=== PATIENT | female | born 1960 | race Caucasian/White ===

== ENCOUNTER 2023-08-15 17:11 | Emergency (ER) | payer OTHER ==
[2023-08-15] MEDS: Labetalol 100 MG/20 ML MDV IVPUSH ONE ×3 (18:30→19:08)
[2023-08-15] MEDS: Sodium Chloride 0.9% 1,000 ML IV SCH (18:35)
[2023-08-15 18:37] LABS: BASOPHILS ABSOLUTE AUTO 0.1 K/mm3 (0.0-0.2); BASOPHILS PERCENT AUTO 0.4 % (0.0-1.0); EOSINOPHILS ABSOLUTE AUTO 0.3 K/mm3 (0.0-0.4); EOSINOPHILS PERCENT AUTO 2.3 % (0.0-6.0); HEMATOCRIT 44.7 % (37.0-47.0); HEMOGLOBIN 14.2 gm/dl (12.0-16.0); IMMATURE GRAN ABSOLUTE AUTO 0.08 K/mm3 (0.00-0.05); IMMATURE GRAN PERCENT AUTO 0.6 % (0.0-0.4); LYMPHOCYTES ABSOLUTE AUTO 2.3 K/mm3 (1.0-4.8); LYMPHOCYTES PERCENT AUTO 16.7 % (24.0-44.0); MEAN CORPUSCULAR HEMOGLOBIN 27.6 pg (28.0-32.0); MEAN CORPUSCULAR HGB CONC 31.8 g/dl (32.0-36.0); MEAN CORPUSCULAR VOLUME 86.8 fl (83.0-99.0); MEAN PLATELET VOLUME 8.7 fl (9.4-12.3); MONOCYTES ABSOLUTE AUTO 0.7 K/mm3 (0.0-0.8); NEUTROPHILS ABSOLUTE AUTO 10.1 K/mm3 (1.8-7.7); PLATELET COUNT,PLT 322 K/mm3 (150-400); RED BLOOD CELL COUNT 5.15 M/mm3 (4.10-5.30); WHITE BLOOD CELL COUNT,WBC 13.53 K/mm3 (3.9-11.3)
[2023-08-15 19:01] LABS: A/G RATIO 0.9 (1-2); ALANINE AMINOTRANSFERASE,ALT 29 U/L (14-59); ALBUMIN 3.8 g/dl (3.4-5.0); ALKALINE PHOSPHATASE 85 U/L (46-116); ANION GAP 13.3 (5-15); ASPARTATE AMNIOTRANSFERASE,AST 22 U/L (15-37); BILIRUBIN TOTAL 0.4 mg/dL (0.2-1.0); BLOOD UREA NITROGEN,BUN 10 mg/dL (7-18); BUN/CREATININE RATIO 12.5 (14-18); CALCIUM 8.9 mg/dL (8.5-10.1); CARBON DIOXIDE,CO2 28 mEq/L (21-32); CHLORIDE,CL 103 mEq/L (98-107); CREATININE 0.8 mg/dL (0.55-1.02); EST CRCL DRUG DOSING (CG) 63.09 mL/min; ESTIMATED GFR 82 mL/min (>60); GLUCOSE RANDOM 162 mg/dL (70-99); POTASSIUM,K 4.3 mEq/L (3.5-5.1); PROTEIN TOTAL,TP 7.9 g/dl (6.4-8.2); SODIUM,NA 140 mEq/L (136-145)
[2023-08-15 19:08] LABS: TROPONIN I HIGH SENSITIVITY < 4 pg/mL (<=51)
[2023-08-15] MEDS: niCARdipine HCl 25 MG in Sodium Chloride 0.9% 250 ML IV SCH (19:11)
[2023-08-15 19:23] LABS: CORONAVIRUS COVID-19 NAA NEGATIVE (NEGATIVE); INFLUENZA A NAA NEGATIVE (NEGATIVE)
[2023-08-15] MEDS: Iopamidol 755 Mg/ML 100 ML Bottle IVPUSH ONE (20:05)
[2023-08-15] MEDS: Sodium Chloride 0.9% 10 ML Syringe FLUSH ONE (20:05)
== END 2023-08-15 21:30 ==
LOC: JD.ED 17:11
DX: I62.9 Nontraumatic intracranial hemorrhage, unspecified (principal); I10 Essential (primary) hypertension
CPT/HCPCS: 0240U; 36415; 70450; 70496; 80053; 84484; 85025; 93005; 96361; 96365; 96366; 96375; 99285; J1921; J3490; J7030; J7050; Q9967

== ENCOUNTER 2023-09-17 08:17 | Emergency (ER) | payer OTHER ==
[2023-09-17 09:33] LABS: BASOPHILS ABSOLUTE AUTO 0.1 K/mm3 (0.0-0.2); BASOPHILS PERCENT AUTO 0.4 % (0.0-1.0); EOSINOPHILS ABSOLUTE AUTO 0.3 K/mm3 (0.0-0.4); EOSINOPHILS PERCENT AUTO 2.8 % (0.0-6.0); HEMATOCRIT 41.7 % (37.0-47.0); HEMOGLOBIN 14.1 gm/dl (12.0-16.0); IMMATURE GRAN ABSOLUTE AUTO 0.03 K/mm3 (0.00-0.05); IMMATURE GRAN PERCENT AUTO 0.3 % (0.0-0.4); MEAN CORPUSCULAR HEMOGLOBIN 28.8 pg (28.0-32.0); MEAN CORPUSCULAR HGB CONC 33.8 g/dl (32.0-36.0); MEAN CORPUSCULAR VOLUME 85.1 fl (83.0-99.0); MEAN PLATELET VOLUME 9.2 fl (9.4-12.3); MONOCYTES PERCENT AUTO 8.7 % (0.0-8.0); NEUTROPHILS ABSOLUTE AUTO 8.8 K/mm3 (1.8-7.7); NEUTROPHILS PERCENT AUTO 78.8 % (41.0-71.0); PLATELET COUNT,PLT 307 K/mm3 (150-400); WHITE BLOOD CELL COUNT,WBC 11.13 K/mm3 (3.9-11.3)
[2023-09-17] MEDS: Ondansetron 4 MG/2 ML SDV IVPUSH ONE (09:42)
[2023-09-17 10:11] LABS: A/G RATIO 0.8 (1-2); ALBUMIN 3.6 g/dl (3.4-5.0); BUN/CREATININE RATIO 13.8 (14-18); CALCIUM 9.8 mg/dL (8.5-10.1); CREATININE 0.8 mg/dL (0.55-1.02); EST CRCL DRUG DOSING (CG) 63.09 mL/min; PROTEIN TOTAL,TP 7.9 g/dl (6.4-8.2)
[2023-09-17] MEDS: Iopamidol 612 MG/ML 100 ML Bottle IVPUSH ONE (10:23)
[2023-09-17] MEDS: Sodium Chloride 0.9% 1,000 ML IV ONE ×2 (10:25→16:50)
[2023-09-17 10:34] LABS: ANION GAP 13.3 (5-15); POTASSIUM,K 3.3 mEq/L (3.5-5.1)
[2023-09-17] MEDS ORDERED: Prochlorperazine 10 MG in Sodium Chloride 0.9% 50 ML IV ONE (11:50)
[2023-09-17] MEDS: Prochlorperazine 10 MG/2 ML SDV IV ONE (12:05)
[2023-09-17] MEDS: Piperacillin/Tazobactam 4.5 GM in Sodium Chloride 0.9% 100 ML IV ONE (14:46)
== END 2023-09-17 20:18 ==
LOC: JD.ED 08:17
DX: K81.9 Cholecystitis, unspecified (principal); R74.01 Elevation of levels of liver transaminase levels; E80.6 Other disorders of bilirubin metabolism; Z98.2 Presence of cerebrospinal fluid drainage device; Z79.82 Long term (current) use of aspirin; Z79.899 Other long term (current) drug therapy; Z86.16 Personal history of COVID-19
CPT/HCPCS: 36415; 70250; 70360; 70450; 71046; 74019; 74177; 80053; 83690; 85025; 87040; 96361; 96365; 96375; 99285; J0780; J2405; J2543; J3490; J7030; Q9967